=== PATIENT | male | born 1965 ===

== ENCOUNTER 2024-12-06 06:00 | Day surgery (SDC) | payer OTHER ==
[2024-11-29 10:10] VITALS: BP 134/81
[2024-11-29 11:01] LABS: URINE APPEARANCE Clear; URINE BILIRRUBIN Negative (NEGATIVE); URINE BLOOD Negative; URINE COLOR Yellow; URINE GLUCOSE Negative (NEGATIVE); URINE KETONE Negative (NEGATIVE); URINE LEUKOCYTE Negative; URINE NITRATE Negative; URINE PROTEIN Negative (NEGATIVE); URINE UROBILINOGEN 1.0 E.U./dl
[2024-11-29 11:05] LABS: URINE RBC 2.6 uL (0.0-20.8)
[2024-11-29 11:07] LABS: URINE BACTERIA 1.1 uL (0.0-1933); URINE CAST 0.00 uL (0.0-1.40); URINE EPITHELIAL CELLS 0.3 uL (0.0-38.8); URINE WBC 0.1 uL (0.0-23.2)
[2024-11-29 11:15] LABS: BASO % 0.9 % (0.1-1.2); EOS # 2.01 (0.04-0.54); LYMPH # 2.03 (1.18-3.74); LYMPH % 27.1 % (19.3-53.1); MEAN PLATELET VOLUME 10.30 fl (9.4-12.4); MONO # 0.63 (0.24-0.82); MONO % 8.4 % (4.7-12.5); NEUT # 2.74 (1.56-6.13); NEUT % 36.7 % (34.0-71.1); RED CELL DISTRIBUTION WIDTH 14.0 % (11.6-14.4)
[2024-11-29 11:30] LABS: INR 1.0
[2024-11-29 11:33] LABS: ALT/SGPT 26.0 U/L (12-78); AST/SGOT 19.0 U/L (15-37); BILIRUBIN TOTAL 0.9 mg/dL (0.3-1.2); BUN CREA RATIO 23.0 (7.0-25.0); CREATININE SERUM 0.83 mg/dL (0.70-1.30); GFR 94.5; GLOBULINA 3.1 G/DL (2.4-3.5); GLUCOSE FASTING 95.0 mg/dL (65-100); OSMOLALITY SERUM 287.0 MOSM/KG (275-295)
[2024-11-29 11:52] LABS: EOS % 26.8 % (0.7-7.0)
[2024-11-29 11:53] LABS: BAND MAN 1.0 %; EOSINOPHIL MAN 18.0 %; LYMPHOCYTE MAN 34.0 %; MONOCYTE MAN 1.0 %; NEUTROPHILS MAN 46.0 %
[~2024-12-06 06:00] MED LIST: ZESTRIL20 MG PO
[2024-12-06] MEDS ORDERED: CEFAZOLIN SODIUM 1,000 MG VIAL IV SCH ×2 (10:15→11:30)
[2024-12-06] MEDS ORDERED: FAMOTIDINE/PF 20 MG/10 ML SYRINGE IV SCH (11:30)
[2024-12-06] MEDS ORDERED: RINGERS SOLUTION,LACTATED 1,000 ML IV SCH (11:30)
[2024-12-06] MEDS ORDERED: MORPHINE SULFATE 4 MG/ML VIAL IV ONE (12:00)
== END 2024-12-06 15:50 | disposition home or self-care (01) ==
LOC: CIR.AMB 06:00
PROVIDERS: ATTEND Specialist
DX: K40.90 Unilateral inguinal hernia, without obstruction or gangrene, not specified as recurrent (principal)